=== PATIENT | male | born 1950 | race Caucasian/White ===

== ENCOUNTER → 2016-12-09 | Outpatient (CLI) | payer OTHER ==
[~2016-12-09] MED LIST: AMLO10TA2 PO; ATOR20TA9 PO; DULO20CA45 PO; GLIP10TA13 PO; LACT1CAP35 PO; LOSA50TA6 PO; METF10002 PO; PROP10TA PO; TRAZ50TA18 PO; glucosamine PO
[2016-12-09 14:27] LABS: HEMOGLOBIN 16.7 g/dL (13.7-18.0)
[2016-12-09 14:40] LABS: ASPARTATE AMINO TRANSFERASE 19 U/L (15-37); BLOOD UREA NITROGEN 20 mg/dL (7-18)
== END | disposition home or self-care (01) ==
LOC: STAR 13:12
PROVIDERS: ATTEND Urology
DX: Z01.818 Encounter for other preprocedural examination (principal); N20.0 Calculus of kidney; N20.1 Calculus of ureter; R79.1 Abnormal coagulation profile
CPT/HCPCS: 36415; 80053; 81001; 85025; 85610; 85730; 87086; 93005

== ENCOUNTER 2016-12-15 09:03 | Day surgery (SDC) | payer OTHER ==
[~2016-12-15] VITALS: Ht 185.4 cm; Wt 88.0 kg
[2016-12-15] MEDS ORDERED: LACTATED RINGERS 1,000 ML IV SCH (09:30)
[2016-12-15] MEDS ORDERED: LIDOCAINE 1%, 2ML SQ PRN (09:30)
[2016-12-15] MEDS ORDERED: LIDOCAINE 1%, 2ML ONE (09:34)
[2016-12-15] MEDS ORDERED: FENTANYL PF 250 MCG/5ML ONE (12:53)
[2016-12-15] MEDS ORDERED: MIDAZOLAM 1 MG/ML, 2ML ONE (12:53)
[2016-12-15] MEDS ORDERED: ONDANSETRON 2MG/ML, 2ML ONE (14:28)
[2016-12-15] MEDS ORDERED: ROCURONIUM 10 MG/ML ONE (14:28)
[2016-12-15] MEDS ORDERED: SUCCINYLCHOLINE 20 MG/ML, 10ML ONE (14:28)
[2016-12-15] MEDS ORDERED: DEXAMETHASONE 4 MG/ML, 1ML ONE (14:28)
[2016-12-15] MEDS ORDERED: PROPOFOL 10 MG/ML, 20ML ONE (14:28)
[2016-12-15] MEDS ORDERED: EPHEDRINE 50 MG/ML, 1ML ONE (14:28)
[2016-12-15] MEDS ORDERED: MEPERIDINE/PF 25MG/0.5ML IVPush PRN (16:00)
[2016-12-15] MEDS ORDERED: METOCLOPRAMIDE 5 MG/ML, 2ML IV PRN (16:00)
[2016-12-15] MEDS ORDERED: FENTANYL PF 100 MCG/2ML IV PRN (16:00)
[2016-12-15] MEDS ORDERED: OXYcodone 5 MG/5 ML ORAL.SOL UDC PO PRN (16:00)
[2016-12-15] MEDS ORDERED: MIDAZOLAM 1 MG/ML, 2ML IV PRN (16:00)
[2016-12-15] MEDS ORDERED: ACETAMINOPHEN 325 MG TABLET PO PRN (16:00)
[2016-12-15] MEDS ORDERED: HYDROmorphone 1 MG/ML, 1ML IV PRN (16:00)
[2016-12-15] MEDS ORDERED: LABETALOL 5MG/ML, 20ML IV PRN (16:00)
[2016-12-15] MEDS ORDERED: ONDANSETRON 2MG/ML, 2ML IVPush PRN (16:00)
[2016-12-15] MEDS ORDERED: PROMETHAZINE 25 MG/ML, 1ML IV PRN (16:00)
[2016-12-15] MEDS ORDERED: hydrALAzine 20 MG/ML, 1ML IV PRN (16:00)
[2016-12-15] MEDS ORDERED: OXYcodone 5 MG/5 ML ORAL.SOL UDC ONE (16:04)
== END 2016-12-15 17:40 ==
LOC: OUT 09:03
PROVIDERS: ATTEND Urology
DX: N20.2 Calculus of kidney with calculus of ureter (principal); I10 Essential (primary) hypertension; E11.9 Type 2 diabetes mellitus without complications; Z72.89 Other problems related to lifestyle
CPT/HCPCS: 50590; 82962; J0330; J1100; J2250; J2405; J2704; J3010; J3490; J7120